=== PATIENT | female | born 1940 | race Caucasian/White ===

== ENCOUNTER 2017-05-16 15:41 | Emergency (ER) | payer OTHER ==
[~2017-05-16] VITALS: Ht 157.5 cm; Wt 74.9 kg
[~2017-05-16 15:41] MED LIST: ASCO500T3 PO; CALC-578 PO; CYCL10TA7 PO; FLUT0.15 NAE; LISI-461 PO; OFLO0.3S4 OPR; PRED1SUS3 OPR; RANI300T2 PO; SULI200T4 PO; VITA1TAB4 PO; VITA1TAB6 PO
[2017-05-16 15:45] VITALS: TEMP 36.4; Ht 157.5 cm; Wt 74.9 kg
[2017-05-16 16:18] LABS: BASO % 0.5 %; BASO ABS # 0.03 K/uL (0-0.2); EOS % 4.4 %; EOS ABS # 0.25 K/uL (0-0.5); HEMATOCRIT 39.4 % (37-47); IG# 0.01 K/uL (0.00-0.02); LYMPH % 23.2 %; LYMPH ABS # 1.33 K/uL (1.2-3.4); MEAN CELL VOLUME 94.9 fL (80-100); MEAN CORPUSCULAR HEMOGLOBIN 31.3 pg (25-34); MEAN PLATELET VOLUME 9.5 fL (7.4-10.4); MONO % 7.9 %; MONO ABS # 0.45 K/uL (0.11-0.59); NEUT % 63.8 %; NEUT ABS # 3.66 K/uL (1.4-6.5); PLATELET COUNT 312 K/uL (130-400); RED CELL DISTRIBUTION WIDTH CV 13.5 % (11.5-14.5); RED CELL DISTRIBUTION WIDTH SD 46.8 fL (36.4-46.3); WHITE BLOOD COUNT 5.73 K/uL (4.8-10.8)
[2017-05-16] MEDS ORDERED: VITA80005 PO (16:19)
--- NOTE | 2017-05-16 16:22 | DIAGNOSTIC IMAGING REPORT ---
CHEST ONE VIEW PORTABLE CLINICAL HISTORY: Fever. Sepsis. COMPARISON STUDY: Chest radiograph December 21, 2014. FINDINGS: Lung volumes are normal. There is no pneumothorax or pleural effusion. No consolidation is evident to suggest pneumonia. There is no evidence for pulmonary edema. Cardiomediastinal silhouette is stable. IMPRESSION: No acute cardiopulmonary findings. Electronically signed by: Ike Nugent M.D. 05/16/2017 4:20 PM Dictated Date/Time: 05/16/2017 4:19 PM
[2017-05-16 16:27] LABS: INR 0.9 (0.9-1.1); PTT PATIENT 24.4 SECONDS (21.0-31.0)
[2017-05-16 16:41] LABS: ALBUMIN 3.6 gm/dl (3.4-5.0); ALT/SGPT 19 U/L (12-78); BLOOD UREA NITROGEN 22 mg/dl (7-18); CALCIUM 8.8 mg/dl (8.5-10.1); CARBON DIOXIDE 25 mmol/L (21-32); CREATININE 0.71 mg/dl (0.60-1.20); GLUCOSE 101 mg/dl (70-99); LIPASE 323 U/L (73-393); POTASSIUM 3.8 mmol/L (3.5-5.1); SODIUM 140 mmol/L (136-145)
[2017-05-16 16:52] LABS: ALKALINE PHOSPHATASE 73 U/L (45-117); AST/SGOT 15 U/L (15-37); CKMB 1.1 ng/ml (0.5-3.6); TOTAL PROTEIN 7.2 gm/dl (6.4-8.2)
[2017-05-16] MEDS ORDERED: KETOROLAC TROMETHAMINE 30 MG/ML VIAL IV STA (17:10)
--- NOTE | 2017-05-16 17:10 | EMERGENCY ROOM VISIT NOTE ---
History Report prepared by Shun: Anish Alexander Under the Supervision of: Dr. Trevor Tim D.O. First contact with patient: 15:49 Chief Complaint: RAPID HEART RATE Stated Complaint: RAPID HEART RATE, PAIN AROUND LEFT SCAPULA History of Present Illness The patient is a 76 year old female who presents to the Emergency Room with complaints of a episodes of rapid heart rate that started last night. She states that she started having pain around her left scapula that started more than 2 weeks ago. The patient notes that she has been being treated for it by her family doctor as a spasm, but the pain worsened today. She adds that the pain is creeping down to her left shoulder today. The patient says that she noticed a rapid heart rate last night, which concerned her. She states that exertion does not worsen her symptoms. She denies any shortness of breath, abdominal pain, fevers, cough, or recent illnesses. She adds that she has hypertension, but did not take her medications yet today. Source of History: patient Onset: Last night Position: other (heart - rapid rate) Timing: other (episodes) Associated Symptoms: No fevers, No cough (or recent illnesses), No SOB, No abdominal pain Note: Associated symptoms: Pain around left scapula and shoulder. Review of Systems See HPI for pertinent positives & negatives. A total of 10 systems reviewed and were otherwise negative. Past Medical & Surgical Medical Problems: (1) HTN (hypertension) (2) IBS (irritable bowel syndrome) (3) Mitral valve prolapse Surgical Problems: (1) H/O sinus surgery (2) S/P appendectomy Family History FHx: heart failure Social History Smoking Status: Never Smoker Marital Status: Housing Status: lives with family Occupation Status: retired Current/Historical Medications Scheduled Ascorbic Acid (Vitamin C), PO HS Fluticasone Propionate (Nasal) (Flonase Allergy Relief), 2 SPRAYS POLO QAM Lisinopril (Zestril), 10 MG PO HS Ranitidine (Zantac), 300 MG PO HS Vitamin A (Vitamin A), 8,000 UNITS PO HS Vitamin E (Vitamin E), 400 UNITS PO HS Scheduled PRN Cyclobenzaprine HCl (Cyclobenzaprine HCl), 1 TAB PO TID PRN for Muscle Spasms Sulindac (Clinoril), 200 MG PO BID PRN for INFLAMMATION Allergies Coded Allergies: Nitrofurantoin (Verified Allergy, Intermediate, RASH, 05/16/17) RASH Physical Exam Vital Signs Date Time Temp Pulse Resp B/P (MAP) Pulse Ox O2 Delivery O2 Flow Rate FiO2 05/16/17 17:27 82 16 158/81 100 Room Air 05/16/17 16:24 83 16 129/83 98 Room Air 05/16/17 16:18 83 05/16/17 15:45 36.4 102 18 158/100 96 Room Air Physical Exam CONSTITUTIONAL/VITAL SIGNS: Reviewed / noted above. GENERAL: Non-toxic in appearance. INTEGUMENTARY: Warm, dry, and [place]. HEAD: Normocephalic. EYES: without scleral icterus or trauma. ENT/OROPHARYNX: clear and moist. LYMPHADENOPATHY/NECK: Is supple without lymphadenopathy or meningismus. RESPIRATORY: Lungs clear and equal. CARDIOVASCULAR: Regular rate and rhythm. GI/ABDOMEN: Soft and nontender. No organomegaly or pulsatile mass. No rebound or guarding. Normal bowel sounds. EXTREMITIES: Warm and well perfused. BACK: No CVA tenderness. NEUROLOGICAL: Intact without focal deficits. PSYCHIATRIC: normal affect. MUSCULOSKELETAL: Mild tenderness to palpation of the left trapezius muscle. Normally developed with good muscle tone. Medical Decision & Procedures ER Provider Diagnostic Interpretation: X ray results and stated below per my interpretation and radiology interpretation. CHEST ONE VIEW PORTABLE CLINICAL HISTORY: Fever. Sepsis. COMPARISON STUDY: Chest radiograph December 21, 2014. FINDINGS: Lung volumes are normal. There is no pneumothorax or pleural effusion. No consolidation is evident to suggest pneumonia. There is no evidence for pulmonary edema. Cardiomediastinal silhouette is stable. IMPRESSION: No acute cardiopulmonary findings. Electronically signed by: Ike Nugent M.D 05/16/2017 4:20 PM Dictated Date/Time: 05/16/2017 4:19 PM Laboratory Results 05/16/17 16:01 Red Blood Count 4.15, Mean Corpuscular Volume 94.9, Mean Corpuscular Hemoglobin 31.3, Mean Corpuscular Hemoglobin Concent 33.0, Mean Platelet Volume 9.5, Neutrophils (%) (Auto) 63.8, Lymphocytes (%) (Auto) 23.2, Monocytes (%) (Auto) 7.9, Eosinophils (%) (Auto) 4.4, Basophils (%) (Auto) 0.5, Neutrophils # (Auto) 3.66, Lymphocytes # (Auto) 1.33, Monocytes # (Auto) 0.45, Eosinophils # (Auto) 0.25, Basophils # (Auto) 0.03 05/16/17 16:01 Test 05/16/17 16:01 White Blood Count 5.73 K/uL (4.8-10.8) Red Blood Count 4.15 M/uL (4.2-5.4) Hemoglobin 13.0 g/dL (12.0-16.0) Hematocrit 39.4 % (37-47) Mean Corpuscular Volume 94.9 fL (80-100) Mean Corpuscular Hemoglobin 31.3 pg (25-34) Mean Corpuscular Hemoglobin Concent 33.0 g/dl (32-36) Platelet Count 312 K/uL (130-400) Mean Platelet Volume 9.5 fL (7.4-10.4) Neutrophils (%) (Auto) 63.8 % Lymphocytes (%) (Auto) 23.2 % Monocytes (%) (Auto) 7.9 % Eosinophils (%) (Auto) 4.4 % Basophils (%) (Auto) 0.5 % Neutrophils # (Auto) 3.66 K/uL (1.4-6.5) Lymphocytes # (Auto) 1.33 K/uL (1.2-3.4) Monocytes # (Auto) 0.45 K/uL (0.11-0.59) Eosinophils # (Auto) 0.25 K/uL (0-0.5) Basophils # (Auto) 0.03 K/uL (0-0.2) RDW Standard Deviation 46.8 fL (36.4-46.3) RDW Coefficient of Variation 13.5 % (11.5-14.5) Immature Granulocyte % (Auto) 0.2 % Immature Granulocyte # (Auto) 0.01 K/uL (0.00-0.02) Prothrombin Time 9.8 SECONDS (9.0-12.0) Prothromb Time International Ratio 0.9 (0.9-1.1) Activated Partial Thromboplast Time 24.4 SECONDS (21.0-31.0) Partial Thromboplastin Ratio 0.9 Anion Gap 7.0 mmol/L (3-11) Est Creatinine Clear Calc Drug Dose 65.9 ml/min Estimated GFR () 97.3 Estimated GFR (Non- 83.9 BUN/Creatinine Ratio 31.4 (10-20) Calcium Level 8.8 mg/dl (8.5-10.1) Total Bilirubin 0.3 mg/dl (0.2-1) Direct Bilirubin < 0.1 mg/dl (0-0.2) Aspartate Amino Transf (AST/SGOT) 15 U/L (15-37) Alanine Aminotransferase (ALT/SGPT) 19 U/L (12-78) Alkaline Phosphatase 73 U/L (45-117) Total Creatine Kinase 61 U/L (26-192) Creatine Kinase MB 1.1 ng/ml (0.5-3.6) Creatine Kinase MB Ratio 1.8 (0-3.0) Troponin I < 0.015 ng/ml (0-0.045) Total Protein 7.2 gm/dl (6.4-8.2) Albumin 3.6 gm/dl (3.4-5.0) Lipase 323 U/L (73-393) Thyroid Stimulating Hormone (TSH) 2.380 uIu/ml (0.300-4.500) Laboratory results as stated above per my review. Medications Administered Medications (Trade) Dose Ordered Sig/Chirag Route Start Time Stop Time Status Last Admin Dose Admin Ketorolac Tromethamine (Toradol Inj) 30 mg NOW STAT IV 05/16/17 17:10 05/16/17 17:11 DC 05/16/17 17:10 30 MG ECG Indication: palpitations Rate (beats per minute): 86 Rhythm: normal sinus Findings: no ectopy, other (no acute injury) ED Course 1555: Previous medical records were reviewed. The patient was evaluated in room C1B. A complete history and physical examination was performed. 1700: On reevaluation, the patient is resting comfortably. I discussed the results and findings with the patient. She verbalized agreement of the treatment plan. She was discharged home. Medical Decision Differential diagnosis: Etiologies such as premature contractions, electrolyte abnormality, cardiac dysrhythmia, thyroid dysfunction, pulmonary embolism, infection, gastrointestinal, as well as others were entertained. This is a 76-year-old female who presents to the ED with a chief complaint of a sensation of increased heart rate started last evening. The patient also reports a pain in her left scapular and shoulder area that has been present since April 29. The patient denies any shortness of breath, recent illness or fevers. She denies any exertional symptoms are worsening with exertion. She states that she is currently undergoing physical therapy for the left posterior shoulder pain. The patient's vital signs reveal slight hypertension. Her exam was unremarkable with exception of some tenderness to palpation of the right left trapezius muscle. CBC is normal, EKG shows a normal sinus rhythm at a rate of 85. Chest x-ray did not show acute process. Chemistry panel was unremarkable. The BUN was 22. Troponin is negative. TSH was normal chest x-ray did not show acute disease. The patient was treated with Toradol IV for her discomfort. She is felt to be stable for discharge. She is taking [id number] medications for her pain and undergoing physical therapy as well. This appears to be musculoskeletal in nature. She was told to follow-up with her PCP and physical therapy for continued evaluation of her symptoms. The patient's heart rate was 85 at the time of disposition. Her blood pressure was normal and her oxygen saturations were near 100%. Medication Reconcilliation Current Medication List: was personally reviewed by me Blood Pressure Screening Patient's blood pressure: Normal blood pressure Impression Primary Impression: Palpitations Additional Impression: Upper back pain on left side Scribe Attestation The scribe's documentation has been prepared under my direction and personally reviewed by me in its entirety. I confirm that the note above accurately reflects all work, treatment, procedures, and medical decision making performed by me. Departure Information Dispostion Home / Self-Care Referrals Angie Payan M.D. (PCP) Patient Instructions My [facility] Additional Instructions Continue current therapies. See your doctor for recheck. Return for any concerns or worsening. Problem Qualifiers
[2017-05-16 17:27] VITALS: BP 158/81; PULSE 82; O2SAT 100
== END 2017-05-16 17:40 | disposition home or self-care (01) ==
LOC: C.EDB 15:42 → C.EDC 17:40
DX: R00.2 Palpitations (principal); M54.9 Dorsalgia, unspecified; I10 Essential (primary) hypertension; K58.9 Irritable bowel syndrome, unspecified; I34.1 Nonrheumatic mitral (valve) prolapse; Z79.899 Other long term (current) drug therapy

== ENCOUNTER 2017-08-09 15:51 | Emergency (ER) | payer OTHER ==
[~2017-08-09] VITALS: Ht 158.8 cm; Wt 76.9 kg
[~2017-08-09 15:51] MED LIST changes: -CALC-578 PO; -OFLO0.3S4 OPR; -PRED1SUS3 OPR; -VITA1TAB6 PO; +VITA80005 PO
[2017-08-09 16:00] VITALS: TEMP 36.6; Ht 158.8 cm; Wt 76.9 kg
--- NOTE | 2017-08-09 17:19 | EMERGENCY ROOM VISIT NOTE ---
History Report prepared by Shun: Anish Alexander Under the Supervision of: Shi ConroyO. First contact with patient: 17:00 Chief Complaint: LEG PAIN,LEG INJURY Stated Complaint: R CALF SORENESS, L KNEE PAIN, B/L FEET SWELLING History of Present Illness The patient is a 77 year old female who presents to the Emergency Room with complaints of persistent bilateral leg soreness that started yesterday morning. She states that she had right rotator cuff surgery 4 days ago. The patient says that started yesterday morning, she had swelling in her feet, and soreness in the right calf and left knee. She notes that she was told by her doctor to come here to get checked for potential blood clots. The patient says that she has no history of blood clots in her legs. She states that her shoulder is sore but doing fine. She denies any leg redness, fevers, chills, nausea, vomiting, chest pain, or shortness of breath. The patient states that she has been taking Oxycodone and Penicillin. Source of History: patient Onset: Yesterday morning Position: leg (bilateral) Symptom Intensity: post-rotator cuff surgery Quality: other (pain) Timing: other (persistent) Associated Symptoms: No fevers, No chills, No chest pain, No SOB, No nausea , No vomiting Note: Feet swelling. Denies leg redness. Review of Systems See HPI for pertinent positives & negatives. A total of 10 systems reviewed and were otherwise negative. Past Medical & Surgical Medical Problems: (1) HTN (hypertension) (2) IBS (irritable bowel syndrome) (3) Mitral valve prolapse Surgical Problems: (1) H/O sinus surgery (2) S/P appendectomy Family History FHx: heart failure Social History Smoking Status: Never Smoker Marital Status: Housing Status: lives with family Occupation Status: retired Current/Historical Medications Scheduled Ascorbic Acid (Vitamin C), PO HS Fluticasone Propionate (Nasal) (Flonase Allergy Relief), 2 SPRAYS POLO QAM Lisinopril (Zestril), 10 MG PO HS Penicillin V Potassium (Veetids), 500 MG PO QID Ranitidine (Zantac), 300 MG PO HS Vitamin A (Vitamin A), 8,000 UNITS PO HS Vitamin E (Vitamin E), 400 UNITS PO HS Scheduled PRN Cyclobenzaprine HCl (Cyclobenzaprine HCl), 1 TAB PO TID PRN for Muscle Spasms Oxycodone Ir (Roxicodone Ir), 5 MG PO Q4H PRN for Severe Pain Sulindac (Clinoril), 200 MG PO BID PRN for INFLAMMATION Allergies Coded Allergies: Nitrofurantoin (Verified Allergy, Intermediate, RASH, 08/09/17) RASH Physical Exam Vital Signs Date Time Temp Pulse Resp B/P (MAP) Pulse Ox O2 Delivery O2 Flow Rate FiO2 08/09/17 18:24 80 18 171/88 97 Room Air 08/09/17 16:00 36.6 92 20 158/83 98 Room Air Physical Exam GENERAL: Patient is awake, alert, and in no acute distress. Patient is resting comfortably and showing no signs of anxiety EYES: The conjunctivae are clear. The pupils are round and reactive. EARS, NOSE, MOUTH AND THROAT: The nose is without any evidence of any deformity. Mucous membranes are moist tongue is midline NECK: The neck is nontender and supple. RESPIRATORY: Normal respiratory effort is noted there is no evidence of wheezing rhonchi or rales CARDIOVASCULAR: Regular rate and rhythm noted there no murmurs rubs or gallops normal S1 normal S2 GASTROINTESTINAL: The abdomen is soft. Bowel sounds are present in all quadrants. Abdomen is nontender MUSCULOSKELETAL/EXTREMITIES: Right upper extremity is held in sling consistent with recent surgery. SKIN: Pedal edema noted bilaterally. Calf tenderness noted, left greater than right. Edema to right hand which is likely dependent given patient's recent surgery. NEUROLOGIC: Patient is awake alert and oriented x3. Medical Decision & Procedures ER Provider Diagnostic Interpretation: US results as stated below per my review and radiologist interpretation. ULTRASOUND VENOUS DOPPLER LWR EXT BILA CLINICAL HISTORY: Bilateral leg swelling. Pain. COMPARISON STUDY: No previous studies for comparison. FINDINGS: Real-time and color flow Doppler imaging were performed. Flow was seen within the femoral, popliteal and calf veins with no intraluminal thrombus demonstrated. The saphenous vein is patent. There are bilateral complex popliteal cysts. These measure 5 x 1.1 x 2.5 cm in the right and 3.9 x 1.1 x 2.6 cm and the left. IMPRESSION: No evidence of lower extremity DVT. Electronically signed by: Mike Georges M.D. 08/09/2017 6:03 PM Dictated Date/Time: 08/09/2017 6:03 PM ED Course 1710: The patient was evaluated in room C7. A complete history and physical examination were performed. 1810: Upon reevaluation, the patient is resting comfortably. I discussed the results and treatment plan with her. She verbalized agreement of the treatment plan. She was discharged home. Medical Decision Differential diagnosis: Etiologies such as DVT, musculoskeletal, infection, joint effusion, trauma, lymphedema, idiopathic, CHF, as well as others were entertained.. Nursing notes reviewed. The patient is a 77-year-old female who presented to the emergency department for an evaluation of lower extremity pain and swelling. The patient is status post shoulder surgery and was sent to the emergency department to be sure that this did not represent a DVT. The patient's Dopplers were negative for DVT but did reveal [place]'s cyst. I discussed patient's radiographic studies with her. She was encouraged to continue all medications as prescribed and follow-up with her family doctor soon as possible. I also recommended that she have repeat Dopplers in 1 week if symptoms do not completely resolve but given that she has bilateral [place]'s cyst she is aware that this may be slow to improve. Medication Reconcilliation Current Medication List: was personally reviewed by me Blood Pressure Screening Patient's blood pressure: Elevated blood pressure Blood pressure disposition: Elevated BP felt to be situational Impression Primary Impression: Bakers cyst Additional Impression: Lower extremity pain Scribe Attestation The scribe's documentation has been prepared under my direction and personally reviewed by me in its entirety. I confirm that the note above accurately reflects all work, treatment, procedures, and medical decision making performed by me. Departure Information Dispostion Home / Self-Care Referrals Angie Payan M.D. (PCP) Patient Instructions Cyst [place] Popliteal, My [facility] Additional Instructions Continue all medications as prescribed. Call your family doctor to schedule a follow-up appointment. If symptoms do not improve I would recommend a repeat ultrasound in 1 week. Return to the emergency department immediately if symptoms change worsen or the need arises. Problem Qualifiers Primary Impression: Bakers cyst Laterality: unspecified laterality Qualified Codes: M71.20 - Synovial cyst of popliteal space [[place]], unspecified knee Additional Impression: Lower extremity pain Laterality: bilateral Qualified Codes: M79.604 - Pain in right leg; M79.605 - Pain in left leg
--- NOTE | 2017-08-09 18:05 | DIAGNOSTIC IMAGING REPORT ---
ULTRASOUND VENOUS DOPPLER LWR EXT BILA CLINICAL HISTORY: Bilateral leg swelling. Pain. COMPARISON STUDY: No previous studies for comparison. FINDINGS: Real-time and color flow Doppler imaging were performed. Flow was seen within the femoral, popliteal and calf veins with no intraluminal thrombus demonstrated. The saphenous vein is patent. There are bilateral complex popliteal cysts. These measure 5 x 1.1 x 2.5 cm in the right and 3.9 x 1.1 x 2.6 cm and the left. IMPRESSION: No evidence of lower extremity DVT. Electronically signed by: Mike Georges M.D. 08/09/2017 6:03 PM Dictated Date/Time: 08/09/2017 6:03 PM
[2017-08-09] MEDS ORDERED: OXYC1TAB3 PO (18:15)
[2017-08-09] MEDS ORDERED: PENI-82 PO (18:15)
[2017-08-09 18:24] VITALS: BP 171/88; PULSE 80; O2SAT 97
== END 2017-08-09 18:37 | disposition home or self-care (01) ==
LOC: C.EDB 15:53 → C.EDC 18:37
DX: M71.20 Synovial cyst of popliteal space [Baker], unspecified knee (principal); M79.604 Pain in right leg; M79.605 Pain in left leg; I10 Essential (primary) hypertension; K58.9 Irritable bowel syndrome, unspecified; I34.1 Nonrheumatic mitral (valve) prolapse; Z82.49 Family history of ischemic heart disease and other diseases of the circulatory system; Z79.899 Other long term (current) drug therapy; Z88.1 Allergy status to other antibiotic agents

== ENCOUNTER 2017-09-14 12:17 | Emergency (ER) | payer OTHER ==
[~2017-09-14] VITALS: Ht 157.5 cm; Wt 71.9 kg
[~2017-09-14 12:17] MED LIST changes: +OXYC1TAB3 PO; +PENI-82 PO
[2017-09-14 12:19] VITALS: TEMP 36.7; Ht 157.5 cm; Wt 71.9 kg
[2017-09-14] MEDS ORDERED: SODIUM CHLORIDE 0.9% 500ML 500 ML IV STA (12:44)
[2017-09-14] MEDS ORDERED: SODIUM CHLORIDE 0.9% 1000ML 1,000 ML IV STA (12:44)
[2017-09-14] MEDS ORDERED: TURM1CAP4 PO (13:05)
[2017-09-14 13:14] LABS: BASO % 0.1 %; BASO ABS # 0.01 K/uL (0-0.2); EOS % 0.4 %; EOS ABS # 0.03 K/uL (0-0.5); HEMATOCRIT 38.2 % (37-47); HEMOGLOBIN 13.1 g/dL (12.0-16.0); IG# 0.01 K/uL (0.00-0.02); LYMPH % 10.5 %; LYMPH ABS # 0.76 K/uL (1.2-3.4); MEAN CELL VOLUME 91.4 fL (80-100); MEAN CORPUSCULAR HEMOGLOBIN 31.3 pg (25-34); MEAN CORPUSCULAR HGB CONC 34.3 g/dl (32-36); MEAN PLATELET VOLUME 9.1 fL (7.4-10.4); MONO % 10.2 %; MONO ABS # 0.74 K/uL (0.11-0.59); NEUT % 78.7 %; PLATELET COUNT 296 K/uL (130-400); RED CELL DISTRIBUTION WIDTH CV 13.3 % (11.5-14.5); RED CELL DISTRIBUTION WIDTH SD 44.1 fL (36.4-46.3); WHITE BLOOD COUNT 7.25 K/uL (4.8-10.8)
[2017-09-14 13:39] LABS: ALBUMIN 3.6 gm/dl (3.4-5.0); ALT/SGPT 20 U/L (12-78); AST/SGOT 21 U/L (15-37); BLOOD UREA NITROGEN 18 mg/dl (7-18); CALCIUM 8.4 mg/dl (8.5-10.1); CARBON DIOXIDE 23 mmol/L (21-32); GLUCOSE 82 mg/dl (70-99); LIPASE 103 U/L (73-393); POTASSIUM 3.2 mmol/L (3.5-5.1); SODIUM 139 mmol/L (136-145)
[2017-09-14 13:41] LABS: ALKALINE PHOSPHATASE 80 U/L (45-117); TOTAL PROTEIN 7.2 gm/dl (6.4-8.2)
--- NOTE | 2017-09-14 14:15 | EMERGENCY ROOM VISIT NOTE ---
History Report prepared by Shun: Anish Alexander Under the Supervision of: Dr. Waqas Gallardo M.D. First contact with patient: 12:36 Chief Complaint: DIARRHEA Stated Complaint: DIARRHEA 3 DAYS-TUMMY BURNING-SPASMS Nursing Triage Summary: diarrhea for 3 days nausea and 1 emesis when first became ill pt reports stomach is burning and churning 4 loose stools today History of Present Illness The patient is a 77 year old female who presents to the Emergency Room with complaints of a persistent illness that started 3 days ago. She states that she vomited only once on the day of onset but has not vomited since then. The patient says that she has had persistent bad diarrhea for the past few days, in addition to nausea and upper abdominal pain. She describes her abdominal pain as a burning, and notes that she has taken a couple Rolaids, which relieve the pain for a period of time. The patient rates her abdominal pain as a 3 out of 10 in severity. She notes that she has new lower back pain. She says that she is not currently nauseated, but she has no appetite and she finds "water repulsive". The patient notes that she has not been eating much at all but has been trying to keep up with fluids. She has no prior abdominal surgical history. The patient notes no recent travels or antibiotic use. She says that she has had a family member () with a recent 24-hour bout of similar symptoms. Pt denies LOC, headache, fevers, chills, diaphoresis, visual changes, neck pain, chest pain, breathing difficulties, melena, hematochezia, urinary symptoms, numbness, weakness, lymphadenopathy, rash, or other complaints. She notes that she had rotator cuff surgery in the early part of last month. Source of History: patient Onset: 3 days ago Position: other (global) Quality: other (illness) Timing: other (persistent) Associated Symptoms: + nausea, + vomiting, + abdominal pain, + back pain, + diarrhea Note: Associated symptoms: Minimal appetite. Review of Systems See HPI for pertinent positives and negatives. A total of ten systems were reviewed and were otherwise negative. Past Medical & Surgical Medical Problems: (1) HTN (hypertension) (2) IBS (irritable bowel syndrome) (3) Mitral valve prolapse Surgical Problems: (1) H/O sinus surgery (2) S/P appendectomy Family History FHx: heart failure Social History Smoking Status: Never Smoker Marital Status: Housing Status: lives with family Occupation Status: retired Current/Historical Medications Scheduled Ascorbic Acid (Vitamin C), PO HS Fluticasone Propionate (Nasal) (Flonase Allergy Relief), 2 SPRAYS POLO QAM Lisinopril (Zestril), 10 MG PO HS Omeprazole (Prilosec), 40 MG PO BID Ranitidine (Zantac), 300 MG PO HS Turmeric (Curcuma Longa) (Turmeric), 1 CAP PO AMHS Vitamin A (Vitamin A), 8,000 UNITS PO HS Vitamin E (Vitamin E), 400 UNITS PO HS Scheduled PRN Cyclobenzaprine HCl (Cyclobenzaprine HCl), 1 TAB PO TID PRN for Muscle Spasms Oxycodone Ir (Roxicodone Ir), 5 MG PO Q4H PRN for Severe Pain Sulindac (Clinoril), 200 MG PO BID PRN for INFLAMMATION Allergies Coded Allergies: Nitrofurantoin (Verified Allergy, Intermediate, RASH, 09/14/17) RASH Physical Exam Vital Signs Date Time Temp Pulse Resp B/P (MAP) Pulse Ox O2 Delivery O2 Flow Rate FiO2 09/14/17 17:01 80 18 174/83 98 Room Air 09/14/17 16:05 88 20 160/75 98 Room Air 09/14/17 14:42 75 16 176/77 98 09/14/17 12:19 36.7 87 18 143/78 97 Room Air Physical Exam GENERAL: Awake, alert, well-appearing, in no distress HENT: Normocephalic, atraumatic. Oropharynx unremarkable. EYES: Normal conjunctiva. Sclera non-icteric. NECK: Supple. No nuchal rigidity. FROM. No masses. RESPIRATORY: Clear to auscultation. No wheezes. No rales. Normal respiratory effort. CARDIAC: Normal rate. Normal rhythm. No murmurs. No rubs. Extremities warm and well perfused. Pulses equal. No JVD. GI: Soft, non-distended. Epigastric tenderness. No rebound or guarding. No masses. RECTAL: Deferred. MUSCULOSKELETAL: Atraumatic. Chest examination reveals no tenderness. The back is symmetrical on inspection without obvious abnormality. There is no CVA tenderness to palpation. No joint edema. LOWER EXTREMITIES: Calves are equal size bilaterally and non-tender. 1+ lower extremity edema. No discoloration. NEURO: Normal sensorium. No sensory or motor deficits noted. SKIN: No rash or jaundice noted. Medical Decision & Procedures ER Provider Diagnostic Interpretation: CT: Radiology results as stated below per my review and radiologist interpretation ABDOMEN AND PELVIS CT WITHOUT CONTRAST CT DOSE: 555.55 mGy.cm HISTORY: Acute vomiting and diarrhea with upper abdominal pain vomiting, diarrhea, dehydration, upper abd pain. h/o appy TECHNIQUE: Multiaxial CT images of the abdomen and pelvis were performed without contrast. A dose lowering technique was utilized adhering to the principles of ALARA. COMPARISON STUDY: CT abdomen and pelvis 05/17/2006. FINDINGS: Mild dependent subsegmental bibasilar atelectasis. No pneumatosis or pneumoperitoneum identified. Imaged inferior cardiac chambers are mildly enlarged. Evaluation of the solid abdominal organs is limited without the use of IV contrast. Calcific granuloma of the right hepatic lobe. Ill-defined 4 mm low attenuating lesion of the subserosal posterior right hepatic lobe, too small to characterize however appears unchanged from comparison suggesting benign etiology. Additionally, there is an ill-defined area of low-attenuation involving the left hepatic lobe adjacent to the falciform ligament, 2.2 x 3.0 cm on image 28 series 2 which appears new from prior exam. Spleen and pancreas are unremarkable. Peripherally calcified centrally low attenuating 1.4 x 1.1 cm structure adjacent to the posterior aspect of the distal pancreatic body suggests partially calcified splenic artery aneurysm. Adrenal glands are within normal limits. No renal calculi or hydronephrosis. Bladder is unremarkable. Uterus and adnexa are within normal limits. Moderate atherosclerosis of the aorta without aneurysm. No bulky adenopathy. There is moderate wall thickening of the pylorus with extensive wall thickening involving the first and second portions of the duodenum with second portion of the duodenum dilated measuring 3.7 cm. Eccentric air along the lateral aspect of the second portion duodenum on image 182 series 3 suggests a mucosal ulceration. Moderate associated reactive edema tracks along the right pericolic gutter. The remainder of the small bowel is unremarkable. Colonic diverticulosis without diverticulitis. Prior appendectomy. Soft tissues are unremarkable. Bones appear intact. Mild degenerative changes about the spine. IMPRESSION: 1. Moderate wall thickening of the pylorus with extensive wall thickening involving the first and second portions of the duodenum is noted along with duodenal dilation. Additionally, there is a suggested area of mucosal ulceration within the second portion of the duodenum. Findings would suggest duodenitis with benign or malignant ulcerative process. No evidence of obstruction or perforation. GI consultation with endoscopy recommended. 2. Partially peripherally calcified centrally low attenuating 1.4 cm structure adjacent to the distal pancreatic body suggests calcified splenic artery aneurysm. 3. Colonic diverticulosis without diverticulitis. 4. Prior appendectomy. 5. Additional findings as above. Electronically signed by: Peterson Longoria M.D. 09/14/2017 2:42 PM Dictated Date/Time: 09/14/2017 2:32 PM Laboratory Results 09/14/17 13:00 Red Blood Count 4.18, Mean Corpuscular Volume 91.4, Mean Corpuscular Hemoglobin 31.3, Mean Corpuscular Hemoglobin Concent 34.3, Mean Platelet Volume 9.1, Neutrophils (%) (Auto) 78.7, Lymphocytes (%) (Auto) 10.5, Monocytes (%) (Auto) 10.2, Eosinophils (%) (Auto) 0.4, Basophils (%) (Auto) 0.1, Neutrophils # (Auto ) 5.70, Lymphocytes # (Auto) 0.76, Monocytes # (Auto) 0.74, Eosinophils # (Auto ) 0.03, Basophils # (Auto) 0.01 09/14/17 13:00 Test 09/14/17 13:00 White Blood Count 7.25 K/uL (4.8-10.8) Red Blood Count 4.18 M/uL (4.2-5.4) Hemoglobin 13.1 g/dL (12.0-16.0) Hematocrit 38.2 % (37-47) Mean Corpuscular Volume 91.4 fL (80-100) Mean Corpuscular Hemoglobin 31.3 pg (25-34) Mean Corpuscular Hemoglobin Concent 34.3 g/dl (32-36) Platelet Count 296 K/uL (130-400) Mean Platelet Volume 9.1 fL (7.4-10.4) Neutrophils (%) (Auto) 78.7 % Lymphocytes (%) (Auto) 10.5 % Monocytes (%) (Auto) 10.2 % Eosinophils (%) (Auto) 0.4 % Basophils (%) (Auto) 0.1 % Neutrophils # (Auto) 5.70 K/uL (1.4-6.5) Lymphocytes # (Auto) 0.76 K/uL (1.2-3.4) Monocytes # (Auto) 0.74 K/uL (0.11-0.59) Eosinophils # (Auto) 0.03 K/uL (0-0.5) Basophils # (Auto) 0.01 K/uL (0-0.2) RDW Standard Deviation 44.1 fL (36.4-46.3) RDW Coefficient of Variation 13.3 % (11.5-14.5) Immature Granulocyte % (Auto) 0.1 % Immature Granulocyte # (Auto) 0.01 K/uL (0.00-0.02) Urine Color DK YELLOW Urine Appearance CLEAR (CLEAR) Urine pH 5.5 (4.5-7.5) Urine Specific Conrad 1.028 (1.000-1.030) Urine Protein TRACE (NEG) Urine Glucose (UA) NEG (NEG) Urine Ketones 3+ (NEG) Urine Occult Blood TRACE (NEG) Urine Nitrite NEG (NEG) Urine Bilirubin NEG (NEG) Urine Urobilinogen NEG (NEG) Urine Leukocyte Esterase TRACE (NEG) Urine WBC (Auto) 1-5 /hpf (0-5) Urine RBC (Auto) 0-4 /hpf (0-4) Urine Hyaline Casts (Auto) 5-10 /lpf (0-5) Urine Epithelial Cells (Auto) >30 /lpf (0-5) Urine Bacteria (Auto) NEG (NEG) Anion Gap 10.0 mmol/L (3-11) Est Creatinine Clear Calc Drug Dose 56.4 ml/min Estimated GFR () 83.6 Estimated GFR (Non- 72.1 BUN/Creatinine Ratio 22.3 (10-20) Calcium Level 8.4 mg/dl (8.5-10.1) Total Bilirubin 0.4 mg/dl (0.2-1) Direct Bilirubin < 0.1 mg/dl (0-0.2) Aspartate Amino Transf (AST/SGOT) 21 U/L (15-37) Alanine Aminotransferase (ALT/SGPT) 20 U/L (12-78) Alkaline Phosphatase 80 U/L (45-117) Total Protein 7.2 gm/dl (6.4-8.2) Albumin 3.6 gm/dl (3.4-5.0) Lipase 103 U/L (73-393) Laboratory results reviewed by me Medications Administered Medications (Trade) Dose Ordered Sig/Chirag Route Start Time Stop Time Status Last Admin Dose Admin Sodium Chloride 500 ml @ 999 mls/hr Q31M STAT IV 09/14/17 12:44 09/14/17 13:14 DC 09/14/17 13:00 999 MLS/HR Sodium Chloride 1,000 ml @ 125 mls/hr Q8H STAT IV 09/14/17 12:44 09/14/17 17:19 DC 09/14/17 15:42 125 MLS/HR Famotidine (Pepcid 20mg Iv Push) 20 mg ONE STAT IV 09/14/17 16:05 09/14/17 16:06 DC 09/14/17 16:12 20 MG Pantoprazole Sodium (Protonix Tab) 40 mg NOW STAT PO 09/14/17 16:12 09/14/17 16:14 DC 09/14/17 16:33 40 MG Potassium Chloride (Klor-Con M10) 20 meq NOW STAT PO 09/14/17 16:40 09/14/17 16:41 DC 09/14/17 17:00 20 MEQ ED Course 1242: The patient was evaluated in room B2. A complete history and physical exam was performed. 1244: NSS 1000 ml @ 125 mls/hr IV, NSS 500 ml @ 999 mls/hr IV. 1438: I reevaluated and updated the patient. 1605: Pepcid 20mg IV Push 20 mg. 1608: I reevaluated and updated the patient. She is resting. 1610: I discussed the patient with Dr. Aj Pope GI. 1612: Protonix Tab 40 mg PO. 1640: I reevaluated the patient and she is doing well. Discussed results and discharge instructions: she verbalized understanding and agreement. The patient is ready for discharge. Ordered Klor-Con M10 20 meq PO. Medical Decision Prior records/ancillary studies reviewed. Triage Nursing notes reviewed and agree them. The patient's history was concerning for nausea, vomiting, diarrhea, and abdominal pain. Differential diagnosis: Etiologies such as gastroenteritis, food borne illness, infections, appendicitis , diverticulitis, inflammatory bowel disease, GI bleed, biliary pathology, as well as others were entertained. Physical examination findings: As above. No peritoneal findings. Mild epigastric tenderness. ER treatment provided: IV hydration 500 mL bolus then 125 mL an hour of NSS. IV Pepcid Oral Protonix On reassessment the patient felt better. Patient was tolerating p.o. intake. Oral potassium Diagnostics interpretation by me: The labs revealed an unremarkable CBC and chemistry panel except for mild hyperkalemia and mild dehydration. Urinalysis revealed no signs of infection. Imaging studies: CT scan as above Consultation: A consultation was placed with the [employer] integration analyst, Dr. Sweeney. The patient will be followed up in the office. She recommended twice daily PPI. The patient had vomiting and diarrhea. She now has a duodenitis. Gastroenterology recommended twice daily PPI and close outpatient follow-up. Patient feels very comfortable with this plan. If she worsens in any way she will be back. I gave my usual and customary discussion regarding this issue. By the evaluation outlined above other emergent etiologies such as those listed in the differential, as well as others, were deemed relatively unlikely. The patient was educated about the findings as listed above. All questions were answered and the patient was pleased with the treatment. Return instructions were outlined and the patient was discharged in stable condition. The patient was referred to gastroenterology and her PCP for follow-up for a recheck of the current condition. Medication Reconcilliation Current Medication List: was personally reviewed by me Blood Pressure Screening Patient's blood pressure: Elevated blood pressure Blood pressure disposition: Referred to PCP Consults Time Called: 1605 Consulting Physician: Dr. Aj DEMPSEY Returned Call: 1610 I discussed the patient with Dr. Aj DEMPSEY. Impression Primary Impression: Nausea vomiting and diarrhea Additional Impressions: Dehydration Hypokalemia Scribe Attestation The scribe's documentation has been prepared under my direction and personally reviewed by me in its entirety. I confirm that the note above accurately reflects all work, treatment, procedures, and medical decision making performed by me. Departure Information Dispostion Home / Self-Care Prescriptions Omeprazole (PRILOSEC) 40 Mg Cap 40 MG PO BID, #30 CAP Prov: Waqas Gallardo MD 09/14/17 Referrals Angie Payan M.D. (PCP) Patient Instructions My [facility] Additional Instructions Prilosec 40 mg twice daily until directed otherwise by your primary physician or [facility] gastroenterology. Follow-up with the primary office on Saturday to schedule an appointment regarding this inflammation of the stomach and duodenum with suspected ulcer formation. Discuss GI referral and upper endoscopy. Refrain from your sulindac until cleared by Dr. Payan or gastroenterology. Avoid any ibuprofen, Motrin, Advil, or Aleve until cleared by your primary office. Return to the ER for worsening abdominal pain, vomiting, vomiting blood, fevers , black or bloody stools, or as needed. Problem Qualifiers
--- NOTE | 2017-09-14 14:44 | DIAGNOSTIC IMAGING REPORT ---
ABDOMEN AND PELVIS CT WITHOUT CONTRAST CT DOSE: 555.55 mGy.cm HISTORY: Acute vomiting and diarrhea with upper abdominal pain vomiting, diarrhea, dehydration, upper abd pain. h/o appy TECHNIQUE: Multiaxial CT images of the abdomen and pelvis were performed without contrast. A dose lowering technique was utilized adhering to the principles of ALARA. COMPARISON STUDY: CT abdomen and pelvis 05/17/2006. FINDINGS: Mild dependent subsegmental bibasilar atelectasis. No pneumatosis or pneumoperitoneum identified. Imaged inferior cardiac chambers are mildly enlarged. Evaluation of the solid abdominal organs is limited without the use of IV contrast. Calcific granuloma of the right hepatic lobe. Ill-defined 4 mm low attenuating lesion of the subserosal posterior right hepatic lobe, too small to characterize however appears unchanged from comparison suggesting benign etiology. Additionally, there is an ill-defined area of low-attenuation involving the left hepatic lobe adjacent to the falciform ligament, 2.2 x 3.0 cm on image 28 series 2 which appears new from prior exam. Spleen and pancreas are unremarkable. Peripherally calcified centrally low attenuating 1.4 x 1.1 cm structure adjacent to the posterior aspect of the distal pancreatic body suggests partially calcified splenic artery aneurysm. Adrenal glands are within normal limits. No renal calculi or hydronephrosis. Bladder is unremarkable. Uterus and adnexa are within normal limits. Moderate atherosclerosis of the aorta without aneurysm. No bulky adenopathy. There is moderate wall thickening of the pylorus with extensive wall thickening involving the first and second portions of the duodenum with second portion of the duodenum dilated measuring 3.7 cm. Eccentric air along the lateral aspect of the second portion duodenum on image 182 series 3 suggests a mucosal ulceration. Moderate associated reactive edema tracks along the right pericolic gutter. The remainder of the small bowel is unremarkable. Colonic diverticulosis without diverticulitis. Prior appendectomy. Soft tissues are unremarkable. Bones appear intact. Mild degenerative changes about the spine. IMPRESSION: 1. Moderate wall thickening of the pylorus with extensive wall thickening involving the first and second portions of the duodenum is noted along with duodenal dilation. Additionally, there is a suggested area of mucosal ulceration within the second portion of the duodenum. Findings would suggest duodenitis with benign or malignant ulcerative process. No evidence of obstruction or perforation. GI consultation with endoscopy recommended. 2. Partially peripherally calcified centrally low attenuating 1.4 cm structure adjacent to the distal pancreatic body suggests calcified splenic artery aneurysm. 3. Colonic diverticulosis without diverticulitis. 4. Prior appendectomy. 5. Additional findings as above. Electronically signed by: Peterson Longoria M.D. 09/14/2017 2:42 PM Dictated Date/Time: 09/14/2017 2:32 PM
[2017-09-14] MEDS ORDERED: FAMOTIDINE 20MG/5ML IV PUSH IV STA (16:05)
[2017-09-14] MEDS ORDERED: PANTOprazole SOD 40 MG TAB PO STA (16:12)
[2017-09-14] MEDS ORDERED: POTASSIUM CHLORIDE 10 MEQ TABCR PO STA (16:40)
[2017-09-14] MEDS ORDERED: OMEP40CA41 PO (16:43)
[2017-09-14 17:01] VITALS: BP 174/83; PULSE 80; O2SAT 98
== END 2017-09-14 17:04 | disposition home or self-care (01) ==
LOC: C.EDB 12:17
DX: E86.0 Dehydration (principal); R11.2 Nausea with vomiting, unspecified; R19.7 Diarrhea, unspecified; E87.6 Hypokalemia; K29.80 Duodenitis without bleeding; I10 Essential (primary) hypertension; K58.9 Irritable bowel syndrome, unspecified; I34.1 Nonrheumatic mitral (valve) prolapse; Z79.899 Other long term (current) drug therapy; Z88.8 Allergy status to other drugs, medicaments and biological substances

== ENCOUNTER 2017-12-02 06:10 | Day surgery (SDC) | payer OTHER ==
[2017-11-28 14:02] VITALS: BMI 28.0
[~2017-12-02] VITALS: Ht 160 cm; Wt 70.9 kg
[~2017-12-02 06:10] MED LIST changes: +ACET1TAB84 PO; +CEFAZOLIN 2000MG IV PUSH 15 ML IV SCH; +LACTATED RINGER'S 1000ML 1,000 ML IV SCH; +NXM/40 PO; -OXYC1TAB3 PO; -PENI-82 PO; -SULI200T4 PO
[2017-12-02 06:53] VITALS: BP 151/73; PULSE 82; TEMP 36.5; O2SAT 98; Ht 160 cm; Wt 70.9 kg
[2017-12-02] MEDS ORDERED: MIDAZOLAM HCL 1 MG/ML 2ML VIAL ONE (07:29)
[2017-12-02] MEDS ORDERED: FENTANYL CITRATE INJ 50 MCG/1 ML 2 ML VIAL ONE (07:30)
--- NOTE | 2017-12-02 08:03 | History & Physical Bridge Note ---
H&P Re-Evaluation Bridge Note: I have examined the patient, reviewed the History & Physical and in the interval since the performance of the History & Physical I have noted the following changes of clinical significance: No changes noted
[2017-12-02] MEDS ORDERED: ACETAMINOPHEN 1000 MG/100 ML IV IV ONE (08:08)
[2017-12-02] MEDS ORDERED: LIDOCAINE HCL 1% 20 ML VIAL ONE ×2 (08:09→09:35)
[2017-12-02] MEDS ORDERED: BACITRACIN OINT 15 GM TUBE ONE (08:09)
[2017-12-02] MEDS ORDERED: EpHEDrine SULFATE INJ 50 MG/ML AMP IV PRN (09:00)
[2017-12-02] MEDS ORDERED: FENTANYL CITRATE INJ 50 MCG/1 ML 2 ML VIAL IV PRN (09:00)
[2017-12-02] MEDS ORDERED: HYDROmorphone INJ 0.5 MG/0.5 ML SYR IV PRN (09:00)
[2017-12-02] MEDS ORDERED: ATROPINE SULFATE 0.1 MG/ML 5ML SYR IV PRN (09:00)
[2017-12-02] MEDS ORDERED: LABETALOL HCL IV 5 MG/ML 20ML IV PRN (09:00)
[2017-12-02] MEDS ORDERED: ONDANSETRON INJ 2 MG/ML 2 ML VIAL IV PRN ×3 (09:00→10:00)
[2017-12-02] MEDS ORDERED: MEPERIDINE HCL 25 MG/ML CARP IV PRN (09:00)
[2017-12-02] MEDS ORDERED: PROPOFOL IV EMULSION 10 MG/ML 20 ML VIAL ONE (09:09)
[2017-12-02] MEDS ORDERED: ONDANSETRON INJ 2 MG/ML 2 ML VIAL ONE (09:09)
[2017-12-02] MEDS ORDERED: ROCURONIUM BROMIDE 10 MG/ML 5 ML VIAL ONE (09:09)
[2017-12-02] MEDS ORDERED: LIDOCAINE HCL 2% 2 ML VIAL (20MG/ML) ONE (09:09)
[2017-12-02] MEDS ORDERED: DEXAMETHASONE SOD INJ 4 MG/ML VIAL ONE (09:09)
[2017-12-02] MEDS ORDERED: GLYCOPYRROLATE INJ 0.2 MG/ML VIAL ONE (09:10)
[2017-12-02] MEDS ORDERED: NEOSTIGMINE METHYLSULFATE 5 MG/5 ML SYR ONE (09:10)
[2017-12-02] MEDS ORDERED: PHENYLEPHRINE HCL INJ 10 MG/ML VIAL ONE (09:21)
[2017-12-02] MEDS ORDERED: SODIUM CHLORIDE 0.9% 1000ML 1,000 ML IV SCH (09:36)
--- NOTE | 2017-12-02 09:36 | [facility] Post Operative Brief Note ---
Immediate Operative Summary Operative Date Dec 02, 2017. Pre-Operative Diagnosis Gallstones; chronic cholecystitis Post-Operative Diagnosis same Procedure(s) Performed Laparascopic Cholecystectomy Surgeon Dr. Romeo Cheung Pediatric Surgeon Surgeon(s) Diana Giraldo PA-C Estimated Blood Loss 10mL Findings Consistent with Post-Op Diagnosis Fluids (cc crystalloids) 600ml Specimens A. Gallbladder and contents Drains None Anesthesia Type General Complication(s) none Disposition Accompanied Pt To Recover: yes Disposition: Recovery Room / PACU
[2017-12-02] MEDS ORDERED: OXYC-57 PO (09:44)
[2017-12-02] MEDS ORDERED: MoRPHine SULFATE 4 MG/ML 1 ML CARP\\VIAL IV PRN ×2 (09:45→10:00)
[2017-12-02] MEDS ORDERED: OXYCODONE/ACETAMINOPHEN 5-325 TAB PO PRN ×3 (09:45→10:00)
--- NOTE | 2017-12-02 09:46 | Discharge Instructions ---
Discharge Instructions Date of Service Dec 02, 2017. Visit Reason for Visit: Chronic Calculous Cholecystitis Discharge Discharge Diagnosis / Problem: S/P laparoscopic cholecystectomy Discharge Goals Goal(s): Decrease discomfort, Improve function Activity Recommendations Activity Limitations: per Instructions/Follow-up section Lifting Limitations: no more than 25 pounds Exercise/Sports Limitations: rest today May Resume Sexual Activity: when tolerated Shower/Bathe: may shower/bathe in 3 days Driving or Machine Use: resume 3 days after discharge Anesthesia . Post Anesthesia Instructions: If you have had General Anesthesia or IV Sedation: * Do not drive today. * Resume driving when surgeon permits. * Do not make important decisions or sign legal documents today. * Call surgeon for: 1. Temperature elevations greater than 101 degrees F. 2. Uncontrollable pain. 3. Excessive bleeding. 4. Persistent nausea and vomiting. 5. Medication intolerance (nausea, vomiting or rash). * For nausea and vomiting use only clear liquids such as: tea, soda, bouillon until nausea subsides, then gradually increase diet as tolerated. * If you have any concerns or questions, call your surgeon's office. If physician is unavailable and it is an emergency, call 911 or go to the nearest emergency room. . Instructions / Follow-Up Instructions / Follow-Up keep the dressing on for 4 days, she can take a shower on 12/06/2017, no driving while taking pain medicine, follow up DR. Cheung in 1-2 weeks, Diet Recommendations Recommended Home Diet: resume previous diet Procedures Procedures Performed: Laparascopic Cholecystectomy Pending Studies Studies pending at discharge: no Medical Emergencies . Who to Call and When: Medical Emergencies: If at any time you feel your situation is an emergency, please call 911 immediately. . Non-Emergent Contact Non-Emergency issues call your: Surgeon . . "Provider Documentation" section prepared by Romeo Cheung. . [place] Drug Monitoring Program Search Results: no issues identified
[2017-12-02] MEDS ORDERED: ACETAMINOPHEN 325 MG TAB PO PRN (10:00)
[2017-12-02] MEDS ORDERED: MoRPHine SULFATE 2 MG/ML CARP IV PRN ×2 (10:00)
[2017-12-02 10:51] VITALS: BP 140/71; PULSE 58; TEMP 36.5; O2SAT 98
[2017-12-02 11:07] VITALS: BP 140/69; PULSE 57; TEMP 36.4; O2SAT 96
--- NOTE | 2017-12-02 11:15 | Anesthesiology Progress Note ---
Anesthesia Post Op Note Date & Time Dec 02, 2017 at 11:14 Vital Signs Pain Intensity: 3 Vital Signs Past 12 Hours Date Time Temp Pulse Resp B/P (MAP) Pulse Ox O2 Delivery O2 Flow Rate FiO2 12/02/17 10:40 57 19 137/69 100 Nasal Cannula 4 12/02/17 10:30 54 19 138/70 100 Nasal Cannula 4 12/02/17 10:20 36.1 57 16 141/72 100 Nasal Cannula 4 12/02/17 10:10 57 19 149/69 100 Oxymask 10 12/02/17 10:00 63 16 150/72 100 Oxymask 10 12/02/17 09:51 36 79 20 165/76 99 Oxymask 10 12/02/17 06:53 36.5 82 18 151/73 (99) 98 Room Air Notes Mental Status: alert / awake / arousable, participated in evaluation Pt Amnestic to Procedure: Yes Nausea / Vomiting: adequately controlled Pain: adequately controlled Airway Patency, RR, SpO2: stable & adequate BP & HR: stable & adequate Hydration State: stable & adequate Anesthetic Complications: no major complications apparent
--- NOTE | 2017-12-02 11:38 | OPERATIVE REPORT ---
DATE OF OPERATION: 12/02/2017 PREOPERATIVE DIAGNOSES: Chronic cholecystitis, cholelithiasis. POSTOPERATIVE DIAGNOSES: Chronic cholecystitis, cholelithiasis. PROCEDURE: Laparoscopic cholecystectomy. SURGEON: Dr. Romeo Cheung MD ANESTHESIA: General. ESTIMATED BLOOD LOSS: About 10 mL. FINDINGS: Chronic cholecystitis. COMPLICATIONS: None. INDICATIONS FOR THE PROCEDURE: This is a 77-year-old female who is referred for laparoscopic cholecystectomy based on patient had a chronic cholecystitis and cholelithiasis. I did talk to patient about the benefit, the risk, alternate procedure. I indicated the risks may include but not limited such as bleeding, infection, injury to common bile duct, injury to bowel, may need ERCP, myocardial infarction and even . Patient understands. She signed informed consent and she agreed to proceed with the procedure. I answered all questions. DETAILS OF PROCEDURE: We brought the patient to the OR, put the patient in the supine position. Patient received SCD on bilateral legs to prevent DVT. Also, patient received 2 grams Ancef IV for prophylactic antibiotic. Patient received general anesthesia without difficulty. The abdomen was prepped and draped in routine sterile fashion. After a timeout, I injected local anesthesia by using 1% lidocaine mixed with 0.5% Marcaine just above umbilicus, opened fascia. Then I made a small incision just above umbilicus, opened fascia and opened peritoneum under direct vision, put a Donaldo trocar in, connected to CO2 to create pneumoperitoneum. Flow rate is 6 liter per minute. Pressure not more than 14 mmHg. Once we got a nice pneumoperitoneum, we put the camera in, looked around the abdomen, showed normal finding on the stomach, small bowel, large bowel and liver, but the gallbladder showing chronic cholecystitis with some omental cover of the gallbladder, confirmed diagnosis of chronic cholecystitis. Then, we put another three 5 mm trocar on the right upper quadrant. Once all trocars in, we put a grasper in to hold the base of the gallbladder, put a direction to the diaphragm, put another grasper to hold the pouch of gallbladder, put latter to expose the triangle of Calot. The cystic duct was identified and mobilized. Put three 5 mm metal clip on the proximal cystic duct, 1 on the distal cystic duct, then used a scissor to transect the cystic duct. Rechecked, no bile leak, no active bleeding. Then the cystic artery was identified and mobilized up and put two 5 mm metal clips on the proximal cystic artery, 1 on the distal cystic artery, used the scissor transection of cystic artery and no active bleeding. Then we used the Bovie to take down the gallbladder from the liver bed without difficulty. Rechecked, no active bleeding, no bile leak from the liver bed. Then we removed the gallbladder through the catch bag then we reinserted Donaldo trocar in, connected to CO2 to create pneumoperitoneum, again looked around the abdomen, no active bleeding, no bile leak. Then we removed all trocar under direct vision. No active bleeding from trocar sites. Pneumoperitoneum was released. I closed the umbilical incision, fascial layer by using #1 Vicryl [id number] x2, closed subcutaneous layer by using 2-0 Vicryl interrupted and closed skin by using 4-0 Vicryl continuous running, closed another three 5 mm trocar site of the skin only by using 4-0 Vicryl. Then we put the dressing on. The patient tolerated the procedure well. All the instrument, needle and sponge count were correct x2 at the end of the case. Patient transferred to recovery room in stable condition. The specimen sent to pathology. After procedure, I did talk to patient's about the OR finding and procedure we did, he understood. Also, I gave them the postop care instructions. I attest to the content of the Intraoperative Record and any orders documented therein. Any exceptions are noted below. MERE
[2017-12-02 11:45] VITALS: BP 145/69; PULSE 59; TEMP 36.4; O2SAT 99
[2017-12-03] MEDS ORDERED: CEFAZOLIN SOD 2000MG/15 ML IV PUSH IV ONE (06:00)
== END 2017-12-02 12:08 | disposition home or self-care (01) ==
LOC: C.ACU 06:10
PROVIDERS: ATTEND Surgery
DX: K80.10 Calculus of gallbladder with chronic cholecystitis without obstruction (principal); I10 Essential (primary) hypertension; I51.7 Cardiomegaly; M81.0 Age-related osteoporosis without current pathological fracture; I34.0 Nonrheumatic mitral (valve) insufficiency; K21.9 Gastro-esophageal reflux disease without esophagitis; M19.90 Unspecified osteoarthritis, unspecified site